=== PATIENT | male | born 1955 | race African-American/Black ===

== ENCOUNTER 2017-11-17 17:58 | Emergency (ER) | payer OTHER ==
[~2017-11-17] VITALS: Ht 188 cm; Wt 106.8 kg
[~2017-11-17 17:58] MED LIST: ASPI-556 PO; BENA40TA3 PO; GLYB5TAB5 PO; HYDR12.516 PO; VERA240C4 PO
[2017-11-17 18:23] LABS: GLUCOSE,POINT OF CARE 98 MG/DL (70-110)
[2017-11-17 18:36] VITALS: BP 135/99
[2017-11-17] MEDS ORDERED: IBUPROFEN 600 MG TABLET PO ONE (18:45)
== END 2017-11-17 18:59 | disposition home or self-care (01) ==
LOC: EMS 17:59
DX: M54.5 Low back pain (principal); J40 Bronchitis, not specified as acute or chronic; E11.9 Type 2 diabetes mellitus without complications; I10 Essential (primary) hypertension; Z79.82 Long term (current) use of aspirin
CPT/HCPCS: 82962; 99283

== ENCOUNTER 2017-11-28 14:19 | Emergency (ER) | payer OTHER ==
[~2017-11-28] VITALS: Ht 188 cm; Wt 109.1 kg
[2017-11-28 14:33] LABS: GLUCOSE,POINT OF CARE 169 MG/DL (70-110)
[2017-11-28] MEDS ORDERED: DEXAMETHASONE SOD PHOS 4 MG/ML 5 ML VIAL IM ONE (15:15)
[2017-11-28] MEDS ORDERED: IPRATROPIUM BROMIDE 0.5 MG/2.5 ML NEB SOLUTION NEB ONE (15:15)
[2017-11-28] MEDS ORDERED: ALBUTEROL SULFATE 5 MG/ML 20 ML NEB SOLN [BULK] NEB ONE (15:15)
[2017-11-28] MEDS ORDERED: 0.9% SODIUM CHLORIDE 15 ML NEB SOLUTION NEB ONE (15:26)
[2017-11-28 16:20] VITALS: BP 128/82
== END 2017-11-28 16:58 | disposition home or self-care (01) ==
LOC: EMS 14:20
DX: J40 Bronchitis, not specified as acute or chronic (principal); I10 Essential (primary) hypertension; E11.9 Type 2 diabetes mellitus without complications; Z79.82 Long term (current) use of aspirin
CPT/HCPCS: 71045; 82962; 94644; 94664; 96372; 99285; J1100; J7611